=== PATIENT | male | born 1975 | race Caucasian/White ===

== ENCOUNTER → 2021-01-06 | Outpatient (CLI) | payer BC ==
[~2021-01-06] MED LIST: ASPIRIN81 MG PO; BRILINTA 90 MG90 MG PO; CRESTOR 10 MG T10 MG PO; FENOFIBRATE145 MG PO; LOPRESSOR 25 MG25 MG PO; NITROGLYCERIN0.4 MG SL; OMEGA-3 ACID ETH1 GM PO
== END ==
LOC: HEART 5 09:00
DX: I20.9 Angina pectoris, unspecified (principal)
CPT/HCPCS: 78452; 93306; A9502; J2785